=== PATIENT | female | born 2000 | race Two or more races ===

== ENCOUNTER 2021-05-16 03:11 | Emergency (ER) | payer SELFPAY ==
[~2021-05-16] VITALS: Ht 165.1 cm; Wt 99.8 kg
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
[2021-05-16] MEDS ORDERED: TDAP [DIPH/PERTUSSIS/TET] 0.5 ML VIAL IM ONE (03:41)
[2021-05-16] MEDS: TDAP [DIPH/PERTUSSIS/TET] 0.5 ML VIAL IM ONE (03:47)
--- NOTE | 2021-05-16 04:15 | NUR ---
TAKEN TO RADIOLOGY
[2021-05-16] MEDS ORDERED: LIDOCAINE 1%-EPI 1:100,000 20 ML VIAL ONE (04:24)
--- NOTE | 2021-05-16 04:30 | NUR ---
AT BEDSIDE FOR PROCEDURE
--- NOTE | 2021-05-16 05:02 | NUR ---
Patient discharged to home in stable condition. Written and verbal after care instructions given. Patient verbalizes understanding of instruction. PT ambulatory with a steady gait
[2021-05-16 06:09] VITALS: BP 120/74
== END 2021-05-16 05:02 | disposition home or self-care (01) ==
LOC: ER 03:16
DX: S01.01XA Laceration without foreign body of scalp, initial encounter (principal); S09.90XA Unspecified injury of head, initial encounter; V49.59XA Passenger injured in collision with other motor vehicles in traffic accident, initial encounter; Y93.89 Activity, other specified; Y92.413 State road as the place of occurrence of the external cause; Y99.8 Other external cause status
CPT/HCPCS: 12001; 70450; 90471; 90715; 99284; A6403; J3490

== ENCOUNTER 2021-05-28 13:03 | Emergency (ER) | payer MEDICAID ==
[~2021-05-28] VITALS: Ht 162.6 cm; Wt 99.3 kg
[2021-05-28 13:10] VITALS: BP 114/71
== END 2021-05-28 13:37 | disposition home or self-care (01) ==
LOC: ER 13:12
DX: S01.01XD Laceration without foreign body of scalp, subsequent encounter (principal); Z60.2 Problems related to living alone; V49.9XXD Car occupant (driver) (passenger) injured in unspecified traffic accident, subsequent encounter